=== PATIENT | male | born 1945 | race Caucasian/White ===

== ENCOUNTER 2017-10-18 16:09 | Inpatient (IN) | payer MEDICARE ==
[~2017-10-18] VITALS: Ht 193 cm; Wt 111.6 kg
[2017-10-18] MEDS: SODIUM CHLORIDE 0.9% 1,000 ML IV SCH (00:28)
[2017-10-18] MEDS ORDERED: SODIUM CHLORIDE FLUSH 10ML SYR IVF ONE (17:00)
[2017-10-18] MEDS ORDERED: LACTATED RINGERS 1,000 ML IVBOLUS ONE (17:00)
[2017-10-18 17:09] LABS: MEAN CORPUSCULAR HEMOGLOBIN 30.7 pg (27.5-34.5); MEAN CORPUSCULAR HGB CONC 32.6 g/dL (33.2-36.2); MEAN CORPUSCULAR VOLUME 94.3 fL (81-97); MEAN PLATELET VOLUME 8.8 fL (7.4-10.4); PLATELET COUNT 253 x10^3/uL (130-400); RED BLOOD COUNT 5.32 x10^6/uL (4.38-5.82); RED CELL DISTRIBUTION WIDTH 17.7 % (9.4-14.8)
[2017-10-18 17:14] LABS: HCT (SEDRATE) 51.2 % (39.2-51.8)
[2017-10-18 17:16] LABS: INTERNATIONAL NORMALIZED RATIO 1.37 (0.93-1.1)
[2017-10-18] MEDS ORDERED: POTA20TA89 PO (17:18)
[2017-10-18] MEDS ORDERED: MULT1TAB98 PO (17:18)
[2017-10-18] MEDS ORDERED: ASCORBIC ACID PO (17:18)
[2017-10-18] MEDS ORDERED: ALLO300T PO (17:18)
[2017-10-18] MEDS ORDERED: DOCU100C33 PO (17:18)
[2017-10-18] MEDS ORDERED: VENL75TA PO (17:18)
[2017-10-18] MEDS ORDERED: ATOR40TA78 PO (17:18)
[2017-10-18] MEDS ORDERED: LACT1CAP20 PO (17:18)
[2017-10-18] MEDS ORDERED: ZINC110T PO (17:18)
[2017-10-18] MEDS ORDERED: AMIO200T42 PO (17:18)
[2017-10-18] MEDS ORDERED: RIVA20TA PO (17:18)
[2017-10-18] MEDS ORDERED: GABA600T2 PO (17:18)
[2017-10-18] MEDS ORDERED: CILO100T PO (17:18)
[2017-10-18] MEDS ORDERED: TOLT4CAP12 PO (17:18)
[2017-10-18] MEDS ORDERED: RISP1TAB3 PO (17:18)
[2017-10-18] MEDS ORDERED: VIT1TABL34 PO (17:18)
[2017-10-18] MEDS ORDERED: BISA10SU13 PR (17:18)
[2017-10-18] MEDS ORDERED: PRED10TA PO (17:18)
[2017-10-18] MEDS ORDERED: FURO40TA6 PO (17:18)
[2017-10-18] MEDS ORDERED: SENN-87 PO (17:18)
[2017-10-18 17:20] LABS: ALANINE AMINOTRANSFERASE 195 U/L (12-78); ALBUMIN 2.5 g/dL (3.4-5.0); ANION GAP 10 mmol/L (5-15); CALCIUM 8.6 mg/dL (8.5-10.1); CHLORIDE 102 mmol/L (98-107); CREATININE 1.05 mg/dL (0.7-1.3)
[2017-10-18 17:25] LABS: ALKALINE PHOSPHATASE 122 U/L (45-117); BILIRUBIN,TOTAL 1.5 mg/dL (0.2-1.0); TOTAL PROTEIN 7.1 g/dL (6.4-8.2); TROPONIN I 0.064 ng/mL (0.000-0.045)
[2017-10-18 17:29] LABS: MD YES
[2017-10-18 17:42] LABS: <PLATELET ESTIMATE> ADEQUATE; <PLT MORPHOLOGY> NORMAL PLT MORPH; ANISOCYTOSIS 1+; BAND#(MANUAL) 0.91 x10^3/uL; BANDS%(MANUAL) 5 % (0-7); LYMPH#(MANUAL) 1.82 x10^3/uL (1-3.4); LYMPHS% (MANUAL) 10 % (22-44); METAMYELOCYTES# (MANUAL) 0.36 x10^3/uL (0-0); METAMYELOCYTES% (MANUAL) 2 % (0-1); MONOS#(MANUAL) 0.73 x10^3/uL (0.3-2.7); MONOS% (MANUAL) 4 % (2-9); SEG#(MANUAL) 14.38 x10^3/uL (1.8-6.8); SEGS% (MANUAL) 79 % (42-75); TOXIC GRAN 1+
[2017-10-18 17:43] LABS: POLYCHROMASIA 1+
[2017-10-18] MEDS ORDERED: PIPERACILLIN/TAZO/PMX 3.375GM 50 ML IV ONE (18:00)
[2017-10-18] MEDS ORDERED: VANCOMYCIN PER PHARMACY MC PRN ×2 (18:00→20:30)
[2017-10-18] MEDS ORDERED: PIPERACILLIN/TAZO/PMX 3.375GM 50 ML ONE (18:29)
[2017-10-18] MEDS ORDERED: PHARMACOKINETIC CONSULTATION MC ONE ×2 (18:30→21:30)
[2017-10-18] MEDS ORDERED: VANCOMYCIN 2,000 MG in SODIUM CHLORIDE 0.9% 500 ML IV ONE (18:30)
[2017-10-18] MEDS ORDERED: VANCOMYCIN 50 MG/ML ORAL SUSP PO ONE (19:00)
[2017-10-18] MEDS ORDERED: ONDANSETRON 2MG/ML, 2ML ONE (19:01)
[2017-10-18] MEDS ORDERED: ONDANSETRON 2MG/ML, 2ML IVPush ONE (19:30)
[2017-10-18 19:39] LABS: MICROSCOPIC NOT IND
[2017-10-18 19:45] LABS: CULTURE INDICATED? NO
[2017-10-18] MEDS ORDERED: MIDAZOLAM 1 MG/ML, 2ML ONE (19:53)
[2017-10-18] MEDS ORDERED: POLYETHYLENE GLYCOL 17 GM PACKET PO PRN (20:00)
[2017-10-18] MEDS ORDERED: OXYcodone IR 5MG TABLET PO PRN (20:00)
[2017-10-18] MEDS ORDERED: hydrALAzine 20 MG/ML, 1ML IVPush PRN (20:00)
[2017-10-18] MEDS ORDERED: HEPARIN 5,000 UNITS/ML, 1ML SQ SCH (20:00)
[2017-10-18] MEDS ORDERED: DOCUSATE 100 MG CAPSULE PO PRN ×2 (20:00→20:30)
[2017-10-18] MEDS ORDERED: ONDANSETRON 2MG/ML, 2ML IVPush PRN (20:00)
[2017-10-18] MEDS ORDERED: ONDANSETRON ODT 4 MG PO PRN (20:00)
[2017-10-18] MEDS ORDERED: MIDAZOLAM 1 MG/ML, 2ML IVPush ONE (20:00)
[2017-10-18] MEDS ORDERED: morphine SULFATE 10 MG/ML, 1ML IVPush PRN (20:00)
[2017-10-18] MEDS ORDERED: PROMETHAZINE 25 MG/ML, 1ML IM PRN (20:00)
[2017-10-18] MEDS ORDERED: SENNOSIDES 8.6 MG TABLET PO PRN (20:30)
[2017-10-18 20:38] LABS: FREE T4 (FREE THYROXINE) 1.81 ng/dL (0.76-1.46); THYROID STIMULATING HORMONE 5.9 mIU/L (0.358-3.740)
[2017-10-18 21:00] VITALS: BP 112/80
[2017-10-18] MEDS ORDERED: MULTIVIT.W/IRON, MINERALS ORAL SOL PO SCH (21:00)
[2017-10-18] MEDS ORDERED: PHARMACOKINETIC MONITORING MC PRN (21:30)
[2017-10-19 00:15] VITALS: BP 112/80
[2017-10-19] MEDS: PIPERACILLIN/TAZO/PMX 3.375GM 50 ML IV SCH ×4 (00:27→17:51)
[2017-10-19] MEDS: AMIODARONE 200 MG TABLET PO SCH ×2 (00:27→10:05)
[2017-10-19] MEDS: ATORVASTATIN 40 MG TABLET PO SCH ×2 (00:28→21:48)
[2017-10-19] MEDS: GABAPENTIN 300 MG CAPSULE PO SCH ×2 (00:28→10:05)
[2017-10-19] MEDS: RISPERIDONE 1 MG TABLET PO SCH ×2 (00:28→21:48)
[2017-10-19] MEDS: SODIUM CHLORIDE 0.9% 1,000 ML IV SCH ×2 (00:28→06:15)
[2017-10-19 00:36] LABS: CLOSTRIDIUM DIFFICILE ANTIGEN POSITIVE; CLOSTRIDIUM DIFFICILE TOXIN NEGATIVE (Negative)
[2017-10-19] MEDS: VANCOMYCIN 50 MG/ML ORAL SUSP PO SCH ×4 (00:55→21:48)
[2017-10-19 01:00] VITALS: BP 114/71
[2017-10-19] MEDS ORDERED: ALBUTEROL SULFATE 2.5 MG/3 ML NPPB PRN (05:00)
[2017-10-19 05:17] LABS: MEAN CORPUSCULAR HEMOGLOBIN 30.5 pg (27.5-34.5); MEAN CORPUSCULAR HGB CONC 32.3 g/dL (33.2-36.2); MEAN CORPUSCULAR VOLUME 94.5 fL (81-97); MEAN PLATELET VOLUME 9.2 fL (7.4-10.4); PLATELET COUNT 233 x10^3/uL (130-400); RED BLOOD COUNT 5.02 x10^6/uL (4.38-5.82)
[2017-10-19 05:20] LABS: ALANINE AMINOTRANSFERASE 236 U/L (12-78); ALBUMIN 2.3 g/dL (3.4-5.0); ANION GAP 8 mmol/L (5-15); CALCIUM 8.4 mg/dL (8.5-10.1); CHLORIDE 106 mmol/L (98-107); CREATININE 1.01 mg/dL (0.7-1.3)
[2017-10-19 05:23] LABS: ALKALINE PHOSPHATASE 109 U/L (45-117); BILIRUBIN,TOTAL 1.9 mg/dL (0.2-1.0); CHOL/HDL RATIO 2.4; CHOLESTEROL, TOTAL 104 mg/dL (140-239); HDL CHOL % 41 % (26-37); HDL CHOLESTEROL (DIRECT) 43 mg/dL (40-60); LDL CHOLESTEROL,CALCULATED 44 mg/dL (54-169); TOTAL PROTEIN 6.6 g/dL (6.4-8.2); TRIGLYCERIDES 85 mg/dL (50-200); VLDL CHOLESTEROL 17 mg/dL (0-25)
[2017-10-19 06:06] LABS: BASOPHILS # (AUTO) 0.03 x10^3/uL (0-0.1); BASOPHILS % (AUTO) 0 % (0-1); EOSINOPHILS # (AUTO) 0.14 x10^3/uL (0-0.4); EOSINOPHILS % (AUTO) 1 % (1-7); LYMPHOCYTES # (AUTO) 1.25 x10^3/uL (1-3.4); LYMPHOCYTES % (AUTO) 12 % (22-44); MD SCAN; MONOCYTES # (AUTO) 1.21 x10^3/uL (0.2-0.8); MONOCYTES % (AUTO) 11 % (2-9); NEUTROPHILS # (AUTO) 8.05 x10^3/uL (1.8-6.8); NEUTROPHILS % (AUTO) 75 % (42-75)
[2017-10-19 07:20] VITALS: BP 123/80
[2017-10-19] MEDS ORDERED: RIVAROXABAN 20 MG TABLET PO SCH (09:00)
[2017-10-19] MEDS: TOLTERODINE LA 4MG CAP.ER.24H PO SCH (09:00)
[2017-10-19] MEDS: CILOSTAZOL 100 MG TABLET PO SCH (10:05)
[2017-10-19] MEDS: VENLAFAXINE 75MG TABLET PO SCH (10:05)
[2017-10-19] MEDS: MULTIVITAMINS WITH IRON TABLET PO SCH ×2 (10:05→21:48)
[2017-10-19] MEDS: ALLOPURINOL 300 MG TABLET PO SCH (10:05)
[2017-10-19] MEDS: ZINC SULFATE 220 MG TAB PO SCH (10:05)
[2017-10-19 12:24] VITALS: BP 95/60
[2017-10-19] MEDS: FILTER 0.22 MICRON FOR AMIODARONE IV PRN (15:16)
[2017-10-19] MEDS: AMIODARONE 900 MG in DEXTROSE 5% 482 ML IV PRN ×2 (15:16→21:49)
[2017-10-19 15:17] VITALS: BP 108/73
[2017-10-19 20:00] VITALS: BP 98/62
[2017-10-19] MEDS ORDERED: VANCOMYCIN 2,000 MG in SODIUM CHLORIDE 0.9% 500 ML IV SCH (20:00)
[2017-10-19 20:05] LABS: TROPONIN I 0.078 ng/mL (0.000-0.045)
[2017-10-20] MEDS: PIPERACILLIN/TAZO/PMX 3.375GM 50 ML IV SCH ×4 (00:12→17:37)
[2017-10-20 02:00] VITALS: BP 120/77
[2017-10-20] MEDS: VANCOMYCIN 50 MG/ML ORAL SUSP PO SCH ×4 (04:00→22:00)
[2017-10-20 05:13] LABS: BASOPHILS # (AUTO) 0.03 x10^3/uL (0-0.1); BASOPHILS % (AUTO) 0 % (0-1); EOSINOPHILS # (AUTO) 0.66 x10^3/uL (0-0.4); EOSINOPHILS % (AUTO) 6 % (1-7); LYMPHOCYTES # (AUTO) 2.24 x10^3/uL (1-3.4); LYMPHOCYTES % (AUTO) 20 % (22-44); MD NO; MEAN CORPUSCULAR HEMOGLOBIN 30.9 pg (27.5-34.5); MEAN CORPUSCULAR HGB CONC 32.3 g/dL (33.2-36.2); MEAN CORPUSCULAR VOLUME 95.6 fL (81-97); MEAN PLATELET VOLUME 9.4 fL (7.4-10.4); MONOCYTES # (AUTO) 1.33 x10^3/uL (0.2-0.8); MONOCYTES % (AUTO) 12 % (2-9); NEUTROPHILS # (AUTO) 6.83 x10^3/uL (1.8-6.8); NEUTROPHILS % (AUTO) 62 % (42-75); PLATELET COUNT 227 x10^3/uL (130-400); RED BLOOD COUNT 4.62 x10^6/uL (4.38-5.82); RED CELL DISTRIBUTION WIDTH 17.6 % (9.4-14.8)
[2017-10-20 05:23] LABS: CHLORIDE 109 mmol/L (98-107)
[2017-10-20 05:55] LABS: ALANINE AMINOTRANSFERASE 285 U/L (12-78); ALBUMIN 2.3 g/dL (3.4-5.0); ALKALINE PHOSPHATASE 94 U/L (45-117); ANION GAP 10 mmol/L (5-15); BILIRUBIN,TOTAL 1.5 mg/dL (0.2-1.0); CREATININE 0.92 mg/dL (0.7-1.3); TOTAL PROTEIN 6.5 g/dL (6.4-8.2)
[2017-10-20 08:29] VITALS: BP 121/86
[2017-10-20] MEDS ORDERED: HEPARIN 5,000 UNITS/ML, 1ML IV ONE (09:00)
[2017-10-20] MEDS ORDERED: HEPARIN 25,000 UNITS/500ML PMX 500 ML IV PRN (09:00)
[2017-10-20] MEDS ORDERED: HEPARIN 5,000 UNITS/ML, 1ML IV PRN (09:00)
[2017-10-20] MEDS: CILOSTAZOL 100 MG TABLET PO SCH (11:25)
[2017-10-20] MEDS: TOLTERODINE LA 4MG CAP.ER.24H PO SCH (11:25)
[2017-10-20] MEDS: MULTIVITAMINS WITH IRON TABLET PO SCH ×2 (11:25→22:00)
[2017-10-20] MEDS: ALLOPURINOL 300 MG TABLET PO SCH (11:25)
[2017-10-20] MEDS: VENLAFAXINE 75MG TABLET PO SCH (11:25)
[2017-10-20] MEDS: ZINC SULFATE 220 MG TAB PO SCH (11:25)
[2017-10-20] MEDS: AMIODARONE 900 MG in DEXTROSE 5% 482 ML IV PRN (13:30)
[2017-10-20] MEDS: FILTER 0.22 MICRON FOR AMIODARONE IV PRN (13:30)
[2017-10-20 13:41] VITALS: BP 98/67
[2017-10-20] MEDS: SODIUM CHLORIDE 0.9% 1,000 ML IV SCH (14:15)
[2017-10-20 18:57] VITALS: BP 117/75
[2017-10-20] MEDS ORDERED: PINK LADY ENEMA 490 ML BOTTLE PR PRN (20:30)
[2017-10-20] MEDS ORDERED: ERGOCALCIFEROL 50,000 UNIT CAPSULE PO SCH (20:30)
[2017-10-20] MEDS: ATORVASTATIN 40 MG TABLET PO SCH (22:00)
[2017-10-20] MEDS: METRONIDAZOLE PMX 500MG/100ML 100 ML IV SCH (23:00)
[2017-10-21] MEDS: SODIUM CHLORIDE 0.9% 1,000 ML IV SCH (02:56)
[2017-10-21 02:58] VITALS: BP 126/81
[2017-10-21] MEDS: VANCOMYCIN 50 MG/ML ORAL SUSP PO SCH ×4 (04:00→21:49)
[2017-10-21 05:38] LABS: BASOPHILS # (AUTO) 0.02 x10^3/uL (0-0.1); BASOPHILS % (AUTO) 0 % (0-1); EOSINOPHILS # (AUTO) 1.15 x10^3/uL (0-0.4); EOSINOPHILS % (AUTO) 12 % (1-7); LYMPHOCYTES # (AUTO) 1.95 x10^3/uL (1-3.4); LYMPHOCYTES % (AUTO) 20 % (22-44); MD NO; MEAN CORPUSCULAR HEMOGLOBIN 30.7 pg (27.5-34.5); MEAN CORPUSCULAR HGB CONC 32.3 g/dL (33.2-36.2); MEAN CORPUSCULAR VOLUME 95.2 fL (81-97); MEAN PLATELET VOLUME 9.1 fL (7.4-10.4); MONOCYTES # (AUTO) 0.99 x10^3/uL (0.2-0.8); MONOCYTES % (AUTO) 10 % (2-9); NEUTROPHILS # (AUTO) 5.63 x10^3/uL (1.8-6.8); NEUTROPHILS % (AUTO) 58 % (42-75); PLATELET COUNT 202 x10^3/uL (130-400); RED BLOOD COUNT 4.45 x10^6/uL (4.38-5.82); RED CELL DISTRIBUTION WIDTH 18.3 % (9.4-14.8)
[2017-10-21 05:51] LABS: ALBUMIN 2.2 g/dL (3.4-5.0); ANION GAP 6 mmol/L (5-15); CALCIUM 8.1 mg/dL (8.5-10.1); CHLORIDE 113 mmol/L (98-107)
[2017-10-21 05:55] LABS: ALANINE AMINOTRANSFERASE 260 U/L (12-78); ALKALINE PHOSPHATASE 91 U/L (45-117); BILIRUBIN,TOTAL 0.9 mg/dL (0.2-1.0); CREATININE 0.73 mg/dL (0.7-1.3); TOTAL PROTEIN 5.9 g/dL (6.4-8.2)
[2017-10-21] MEDS ORDERED: POTASSIUM CHLORIDE 20 MEQ in DEXTROSE 5% 1,000 ML IV SCH (07:30)
[2017-10-21] MEDS ORDERED: POTASSIUM CHLORIDE 20 MEQ TAB.ER.PRT PO ONE ×2 (07:30→12:00)
[2017-10-21] MEDS ORDERED: MAGNESIUM SULFATE PMX 2GM/50ML 50 ML IV ONE (07:30)
[2017-10-21 08:23] VITALS: BP 119/75
[2017-10-21] MEDS: CILOSTAZOL 100 MG TABLET PO SCH (09:01)
[2017-10-21] MEDS: MULTIVITAMINS WITH IRON TABLET PO SCH ×2 (09:02→20:55)
[2017-10-21] MEDS: VENLAFAXINE 75MG TABLET PO SCH (09:02)
[2017-10-21] MEDS: ZINC SULFATE 220 MG TAB PO SCH (09:02)
[2017-10-21] MEDS: ALLOPURINOL 300 MG TABLET PO SCH (09:02)
[2017-10-21] MEDS: TOLTERODINE LA 4MG CAP.ER.24H PO SCH (09:02)
[2017-10-21] MEDS: RIVAROXABAN 20 MG TABLET PO SCH (09:03)
[2017-10-21] MEDS: METRONIDAZOLE PMX 500MG/100ML 100 ML IV SCH ×2 (12:57→20:56)
[2017-10-21 13:03] VITALS: BP 116/70
[2017-10-21 20:11] VITALS: BP 100/63
[2017-10-21] MEDS: AMIODARONE 200 MG TABLET PO SCH (20:55)
[2017-10-21] MEDS: ATORVASTATIN 40 MG TABLET PO SCH (20:56)
[2017-10-21] MEDS ORDERED: AMIODARONE 200 MG TABLET PO SCH (21:00)
[2017-10-22 02:21] VITALS: BP 112/76
[2017-10-22] MEDS: VANCOMYCIN 50 MG/ML ORAL SUSP PO SCH ×4 (04:09→22:43)
[2017-10-22] MEDS: METRONIDAZOLE PMX 500MG/100ML 100 ML IV SCH ×3 (05:15→21:26)
[2017-10-22 05:18] LABS: BASOPHILS # (AUTO) 0.04 x10^3/uL (0-0.1); BASOPHILS % (AUTO) 0 % (0-1); EOSINOPHILS # (AUTO) 1.16 x10^3/uL (0-0.4); EOSINOPHILS % (AUTO) 11 % (1-7); LYMPHOCYTES # (AUTO) 2.68 x10^3/uL (1-3.4); LYMPHOCYTES % (AUTO) 25 % (22-44); MD NO; MEAN CORPUSCULAR HEMOGLOBIN 30.6 pg (27.5-34.5); MEAN CORPUSCULAR HGB CONC 32.2 g/dL (33.2-36.2); MEAN CORPUSCULAR VOLUME 95.1 fL (81-97); MEAN PLATELET VOLUME 9.4 fL (7.4-10.4); MONOCYTES # (AUTO) 1.26 x10^3/uL (0.2-0.8); MONOCYTES % (AUTO) 12 % (2-9); NEUTROPHILS # (AUTO) 5.55 x10^3/uL (1.8-6.8); NEUTROPHILS % (AUTO) 52 % (42-75); PLATELET COUNT 203 x10^3/uL (130-400); RED CELL DISTRIBUTION WIDTH 18.3 % (9.4-14.8)
[2017-10-22 05:20] LABS: CALCIUM 7.7 mg/dL (8.5-10.1); CHLORIDE 108 mmol/L (98-107)
[2017-10-22 05:26] LABS: ALANINE AMINOTRANSFERASE 201 U/L (12-78); ALKALINE PHOSPHATASE 82 U/L (45-117); ANION GAP 7 mmol/L (5-15); BILIRUBIN,TOTAL 1.3 mg/dL (0.2-1.0); CREATININE 0.58 mg/dL (0.7-1.3); TOTAL PROTEIN 5.5 g/dL (6.4-8.2)
[2017-10-22 06:46] VITALS: BP 118/75
[2017-10-22] MEDS: ZINC SULFATE 220 MG TAB PO SCH (10:36)
[2017-10-22] MEDS: RIVAROXABAN 20 MG TABLET PO SCH (10:36)
[2017-10-22] MEDS: ALLOPURINOL 300 MG TABLET PO SCH (10:36)
[2017-10-22] MEDS: MULTIVITAMINS WITH IRON TABLET PO SCH ×2 (10:36→21:27)
[2017-10-22] MEDS: AMIODARONE 200 MG TABLET PO SCH ×2 (10:37→21:27)
[2017-10-22] MEDS: VENLAFAXINE 75MG TABLET PO SCH ×2 (10:38→21:28)
[2017-10-22] MEDS: CILOSTAZOL 100 MG TABLET PO SCH (10:38)
[2017-10-22] MEDS: TOLTERODINE LA 4MG CAP.ER.24H PO SCH (10:39)
[2017-10-22 13:17] VITALS: BP 95/54
[2017-10-22 14:50] VITALS: BP 128/92
[2017-10-22] MEDS: DOXYCYCLINE 100 MG in DEXTROSE 5% 250 ML IV SCH (15:07)
[2017-10-22 20:22] VITALS: BP 128/77
[2017-10-22] MEDS: ATORVASTATIN 40 MG TABLET PO SCH (21:27)
[2017-10-23 01:42] VITALS: BP 115/65
[2017-10-23] MEDS: DOXYCYCLINE 100 MG in DEXTROSE 5% 250 ML IV SCH ×2 (02:59→14:53)
[2017-10-23] MEDS: VANCOMYCIN 50 MG/ML ORAL SUSP PO SCH ×4 (04:18→21:42)
[2017-10-23 05:01] LABS: BASOPHILS # (AUTO) 0.01 x10^3/uL (0-0.1); BASOPHILS % (AUTO) 0 % (0-1); EOSINOPHILS # (AUTO) 1.27 x10^3/uL (0-0.4); EOSINOPHILS % (AUTO) 11 % (1-7); LYMPHOCYTES # (AUTO) 2.47 x10^3/uL (1-3.4); LYMPHOCYTES % (AUTO) 21 % (22-44); MD NO; MEAN CORPUSCULAR HEMOGLOBIN 30.9 pg (27.5-34.5); MEAN CORPUSCULAR HGB CONC 32.3 g/dL (33.2-36.2); MEAN CORPUSCULAR VOLUME 95.5 fL (81-97); MEAN PLATELET VOLUME 9.4 fL (7.4-10.4); MONOCYTES % (AUTO) 10 % (2-9); NEUTROPHILS # (AUTO) 6.92 x10^3/uL (1.8-6.8); NEUTROPHILS % (AUTO) 58 % (42-75); PLATELET COUNT 215 x10^3/uL (130-400); RED BLOOD COUNT 4.88 x10^6/uL (4.38-5.82); RED CELL DISTRIBUTION WIDTH 17.8 % (9.4-14.8)
[2017-10-23] MEDS: METRONIDAZOLE PMX 500MG/100ML 100 ML IV SCH (05:07)
[2017-10-23 05:10] LABS: ALANINE AMINOTRANSFERASE 185 U/L (12-78); ALBUMIN 2.2 g/dL (3.4-5.0); ANION GAP 10 mmol/L (5-15); CALCIUM 8.1 mg/dL (8.5-10.1); CHLORIDE 106 mmol/L (98-107); CREATININE 0.72 mg/dL (0.7-1.3)
[2017-10-23 05:12] LABS: ALKALINE PHOSPHATASE 107 U/L (45-117); BILIRUBIN,TOTAL 1.3 mg/dL (0.2-1.0)
[2017-10-23] MEDS ORDERED: MAGNESIUM SULFATE 4 GM in SODIUM CHLORIDE 0.9% 100 ML IV ONE (07:30)
[2017-10-23] MEDS ORDERED: POTASSIUM CHLORIDE 20 MEQ TAB.ER.PRT PO ONE (07:30)
[2017-10-23 08:13] VITALS: BP 107/74
[2017-10-23] MEDS ORDERED: MAGNESIUM SULFATE IN WATER 50 ML IV ONE (08:30)
[2017-10-23] MEDS: MULTIVITAMINS WITH IRON TABLET PO SCH ×2 (08:41→21:15)
[2017-10-23] MEDS: ZINC SULFATE 220 MG TAB PO SCH (08:41)
[2017-10-23] MEDS: CILOSTAZOL 100 MG TABLET PO SCH (08:42)
[2017-10-23] MEDS: VENLAFAXINE 75MG TABLET PO SCH ×2 (08:42→21:00)
[2017-10-23] MEDS: ALLOPURINOL 300 MG TABLET PO SCH (08:42)
[2017-10-23] MEDS: RIVAROXABAN 20 MG TABLET PO SCH (08:43)
[2017-10-23] MEDS: TOLTERODINE LA 4MG CAP.ER.24H PO SCH (08:43)
[2017-10-23] MEDS: AMIODARONE 200 MG TABLET PO SCH ×2 (08:43→21:16)
[2017-10-23] MEDS ORDERED: VENLAFAXINE 75MG TABLET PO SCH (09:00)
[2017-10-23 12:55] VITALS: BP 122/81
[2017-10-23] MEDS: ATORVASTATIN 40 MG TABLET PO SCH (21:15)
[2017-10-23 21:17] VITALS: BP 117/77
[2017-10-24 00:45] VITALS: BP 131/93
[2017-10-24] MEDS: DOXYCYCLINE 100 MG in DEXTROSE 5% 250 ML IV SCH ×2 (03:42→15:08)
[2017-10-24] MEDS: VANCOMYCIN 50 MG/ML ORAL SUSP PO SCH ×4 (03:44→22:05)
[2017-10-24 05:21] LABS: BASOPHILS # (AUTO) 0.03 x10^3/uL (0-0.1); BASOPHILS % (AUTO) 0 % (0-1); EOSINOPHILS # (AUTO) 1.15 x10^3/uL (0-0.4); EOSINOPHILS % (AUTO) 9 % (1-7); LYMPHOCYTES # (AUTO) 1.98 x10^3/uL (1-3.4); LYMPHOCYTES % (AUTO) 15 % (22-44); MD NO; MEAN CORPUSCULAR HEMOGLOBIN 30.9 pg (27.5-34.5); MEAN CORPUSCULAR HGB CONC 32.6 g/dL (33.2-36.2); MEAN CORPUSCULAR VOLUME 94.6 fL (81-97); MEAN PLATELET VOLUME 9.4 fL (7.4-10.4); MONOCYTES # (AUTO) 1.26 x10^3/uL (0.2-0.8); MONOCYTES % (AUTO) 10 % (2-9); NEUTROPHILS # (AUTO) 8.46 x10^3/uL (1.8-6.8); NEUTROPHILS % (AUTO) 66 % (42-75); PLATELET COUNT 214 x10^3/uL (130-400); RED BLOOD COUNT 4.69 x10^6/uL (4.38-5.82); RED CELL DISTRIBUTION WIDTH 18.1 % (9.4-14.8)
[2017-10-24 05:33] LABS: ALBUMIN 2.1 g/dL (3.4-5.0); CALCIUM 7.9 mg/dL (8.5-10.1); CHLORIDE 108 mmol/L (98-107)
[2017-10-24 05:38] LABS: ALANINE AMINOTRANSFERASE 163 U/L (12-78); ALKALINE PHOSPHATASE 115 U/L (45-117); ANION GAP 9 mmol/L (5-15); BILIRUBIN,TOTAL 1.3 mg/dL (0.2-1.0); CREATININE 0.72 mg/dL (0.7-1.3); TOTAL PROTEIN 5.7 g/dL (6.4-8.2)
[2017-10-24 08:32] VITALS: BP 128/85
[2017-10-24] MEDS: VENLAFAXINE 75MG TABLET PO SCH (09:00)
[2017-10-24] MEDS: TOLTERODINE LA 4MG CAP.ER.24H PO SCH (09:00)
[2017-10-24] MEDS: ZIPRASIDONE 20 MG INJ IM ONE ×2 (09:28→09:30)
[2017-10-24] MEDS: POTASSIUM CHLORIDE 20 MEQ TAB.ER.PRT PO SCH ×2 (11:17→17:33)
[2017-10-24] MEDS: AMIODARONE 200 MG TABLET PO SCH ×2 (11:18→22:05)
[2017-10-24] MEDS: RIVAROXABAN 20 MG TABLET PO SCH (11:18)
[2017-10-24] MEDS: ZINC SULFATE 220 MG TAB PO SCH (11:18)
[2017-10-24] MEDS: ALLOPURINOL 300 MG TABLET PO SCH (11:18)
[2017-10-24] MEDS: CILOSTAZOL 100 MG TABLET PO SCH (11:18)
[2017-10-24] MEDS: MULTIVITAMINS WITH IRON TABLET PO SCH ×2 (11:18→22:05)
[2017-10-24] MEDS: SODIUM CHLORIDE 0.9% 1,000 ML IV SCH (14:15)
[2017-10-24 14:44] VITALS: BP 103/58
[2017-10-24 21:15] VITALS: BP 120/82
[2017-10-24] MEDS: ATORVASTATIN 40 MG TABLET PO SCH (22:05)
[2017-10-25 01:28] VITALS: BP 125/77
[2017-10-25] MEDS: SODIUM CHLORIDE 0.9% 1,000 ML IV SCH ×2 (01:35→14:56)
[2017-10-25] MEDS: DOXYCYCLINE 100 MG in DEXTROSE 5% 250 ML IV SCH (02:47)
[2017-10-25] MEDS: VANCOMYCIN 50 MG/ML ORAL SUSP PO SCH ×4 (04:04→20:23)
[2017-10-25 05:26] LABS: ANION GAP 9 mmol/L (5-15); CALCIUM 8.4 mg/dL (8.5-10.1); CHLORIDE 110 mmol/L (98-107)
[2017-10-25 05:27] LABS: CREATININE 0.74 mg/dL (0.7-1.3)
[2017-10-25 05:40] LABS: MEAN CORPUSCULAR HEMOGLOBIN 30.4 pg (27.5-34.5); MEAN CORPUSCULAR HGB CONC 32.6 g/dL (33.2-36.2); MEAN CORPUSCULAR VOLUME 93.3 fL (81-97); MEAN PLATELET VOLUME 9.9 fL (7.4-10.4); PLATELET COUNT 244 x10^3/uL (130-400); RED BLOOD COUNT 4.72 x10^6/uL (4.38-5.82); RED CELL DISTRIBUTION WIDTH 18.7 % (9.4-14.8)
[2017-10-25 06:13] LABS: BASOPHILS # (AUTO) 0.05 x10^3/uL (0-0.1); BASOPHILS % (AUTO) 0 % (0-1); EOSINOPHILS # (AUTO) 1.12 x10^3/uL (0-0.4); EOSINOPHILS % (AUTO) 7 % (1-7); LYMPHOCYTES # (AUTO) 3.05 x10^3/uL (1-3.4); LYMPHOCYTES % (AUTO) 19 % (22-44); MD SCAN; MONOCYTES # (AUTO) 1.66 x10^3/uL (0.2-0.8); MONOCYTES % (AUTO) 11 % (2-9); NEUTROPHILS # (AUTO) 9.94 x10^3/uL (1.8-6.8); NEUTROPHILS % (AUTO) 63 % (42-75)
[2017-10-25 08:27] VITALS: BP 134/95
[2017-10-25] MEDS: TOLTERODINE LA 4MG CAP.ER.24H PO SCH (09:00)
[2017-10-25] MEDS: RIVAROXABAN 20 MG TABLET PO SCH (09:17)
[2017-10-25] MEDS: AMIODARONE 200 MG TABLET PO SCH ×2 (09:18→20:22)
[2017-10-25] MEDS: MULTIVITAMINS WITH IRON TABLET PO SCH ×2 (09:18→20:21)
[2017-10-25] MEDS: ALLOPURINOL 300 MG TABLET PO SCH (09:18)
[2017-10-25] MEDS: CILOSTAZOL 100 MG TABLET PO SCH (09:18)
[2017-10-25] MEDS: ZINC SULFATE 220 MG TAB PO SCH (09:18)
[2017-10-25] MEDS ORDERED: ERTAPENEM 1 GM in SODIUM CHLORIDE 0.9% 50 ML IV SCH (14:30)
[2017-10-25 14:42] VITALS: BP 117/78
[2017-10-25] MEDS: metroNIDAZOLE 500 MG TABLET PO SCH ×2 (15:39→20:22)
[2017-10-25 18:28] VITALS: BP 116/77
[2017-10-25] MEDS: ATORVASTATIN 40 MG TABLET PO SCH (20:21)
[2017-10-26 02:00] VITALS: BP 142/86
[2017-10-26] MEDS: metroNIDAZOLE 500 MG TABLET PO SCH ×2 (02:20→09:39)
[2017-10-26] MEDS: VANCOMYCIN 50 MG/ML ORAL SUSP PO SCH ×2 (02:49→08:30)
[2017-10-26] MEDS: SODIUM CHLORIDE 0.9% 1,000 ML IV SCH (04:27)
[2017-10-26] MEDS: ZINC SULFATE 220 MG TAB PO SCH (08:41)
[2017-10-26] MEDS: MULTIVITAMINS WITH IRON TABLET PO SCH (08:41)
[2017-10-26 08:42] VITALS: BP 124/83
[2017-10-26] MEDS: TOLTERODINE LA 4MG CAP.ER.24H PO SCH (09:00)
[2017-10-26] MEDS: ALLOPURINOL 300 MG TABLET PO SCH (09:39)
[2017-10-26] MEDS: CILOSTAZOL 100 MG TABLET PO SCH (09:39)
[2017-10-26] MEDS: AMIODARONE 200 MG TABLET PO SCH (09:40)
[2017-10-26] MEDS: RIVAROXABAN 20 MG TABLET PO SCH (09:40)
[2017-10-26] MEDS ORDERED: SCOPOLAMINE PATCH, 1.5MG PATCH.TD72 TD SCH (13:00)
[2017-10-26] MEDS ORDERED: ATROPINE OPHTH SOLN 1%, 5ML PO PRN (13:00)
[2017-10-26 13:36] VITALS: BP 116/73
[2017-10-26] MEDS: morphine SULFATE 10 MG/ML, 1ML IVPush PRN ×2 (17:01→23:59)
[2017-10-26] MEDS: LORazepam 2 MG/ML, 1ML IVPush PRN (17:01)
[2017-10-26] MEDS ORDERED: MORPHINE SULFATE 4 MG/ML, 1ML ONE (23:57)
[2017-10-27] MEDS ORDERED: MORPHINE SULFATE 4 MG/ML, 1ML ONE (03:58)
[2017-10-27] MEDS: morphine SULFATE 10 MG/ML, 1ML IVPush PRN ×4 (04:00→13:02)
[2017-10-27] MEDS ORDERED: HYDROmorphone 10 MG in SODIUM CHLORIDE 0.9% 245 ML IVPB PRN (14:51)
[2017-10-27] MEDS: LORazepam 2 MG/ML, 1ML IVPush PRN (16:35)
== END 2017-10-27 22:52 | disposition expired | DRG 871 ==
LOC: ED 18:54 → EDIP 19:16 → 4WST 20:43 → 3NW 10-26 14:58
PROVIDERS: ADMIT Internal Medicine; ATTEND Internal Medicine
PROC: 0T9B70Z Drainage of Bladder with Drainage Device, Via Natural or Artificial Opening (ICD-10-PCS; principal; 2017-10-18)
DX: A41.4 Sepsis due to anaerobes (principal); J18.9 Pneumonia, unspecified organism; E43 Unspecified severe protein-calorie malnutrition; G93.41 Metabolic encephalopathy; J96.90 Respiratory failure, unspecified, unspecified whether with hypoxia or hypercapnia; J18.0 Bronchopneumonia, unspecified organism; A04.72 Enterocolitis due to Clostridium difficile, not specified as recurrent; E87.2 Acidosis; D68.69 Other thrombophilia; K56.0 Paralytic ileus; E78.5 Hyperlipidemia, unspecified; I11.9 Hypertensive heart disease without heart failure; I48.2 Chronic atrial fibrillation; E55.9 Vitamin D deficiency, unspecified; E11.51 Type 2 diabetes mellitus with diabetic peripheral angiopathy without gangrene; E11.40 Type 2 diabetes mellitus with diabetic neuropathy, unspecified; K57.30 Diverticulosis of large intestine without perforation or abscess without bleeding; K72.90 Hepatic failure, unspecified without coma; M10.9 Gout, unspecified; R74.0 Nonspecific elevation of levels of transaminase and lactic acid dehydrogenase [LDH]; Z66 Do not resuscitate; Z51.5 Encounter for palliative care; R65.20 Severe sepsis without septic shock; N32.81 Overactive bladder; K56.41 Fecal impaction; Y95 Nosocomial condition; E86.9 Volume depletion, unspecified; N19 Unspecified kidney failure; Z86.718 Personal history of other venous thrombosis and embolism; Z89.511 Acquired absence of right leg below knee; Z95.2 Presence of prosthetic heart valve; Z79.899 Other long term (current) drug therapy; Z79.1 Long term (current) use of non-steroidal anti-inflammatories (NSAID); Z79.2 Long term (current) use of antibiotics; Z87.440 Personal history of urinary (tract) infections; Z88.2 Allergy status to sulfonamides; Z88.1 Allergy status to other antibiotic agents; Z88.8 Allergy status to other drugs, medicaments and biological substances; Z68.29 Body mass index [BMI] 29.0-29.9, adult
CPT/HCPCS: 36415; 36600; 70450; 71045; 74018; 74176; 74177; 80048; 80053; 80061; 81003; 82140; 82306; 82607; 82803; 83036; 83605; 83690; 83735; 84100; 84145; 84439; 84443; 84484; 85025; 85520; 85610; 85651; 85730; 87040; 87324; 87493; 93005; 96365; 96375; J1170; J1335; J2250; J2405; J2543; J3370; J3480; J3486; J7060; J7070; J0282; J2060; J2270; J3475; J7030; J7040; J7050; J7120